=== PATIENT | male | born 1990 | race American Indian/Alaskan Native ===

== ENCOUNTER 2022-04-06 21:40 | Emergency (ER) | payer SELFPAY ==
--- NOTE | 2022-04-07 01:24 | Emergency Department Report ---
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 Patient states he had safety glasses however with chip flipped over glasses and struck him in his right eye. Now with burning itching and redness to same. Patient denies decreased vision. States feels like is a scratch on his side. States clear drainage. Last tetanus shot 4 years ago. Patient denies other complaint. - Related Data Previous Rx's Medication Instructions Recorded Last Taken Type Ibuprofen [Motrin 800 MG tab] 800 mg PO Q8HR PRN #30 tablet 04/07/22 Unknown Rx Ketotifen Fumarate [Zaditor] 2 drops OP BID PRN #5 ml 04/07/22 Unknown Rx Polymyxin B Sulf/Trimethoprim 2 drops OP Q3H 7 Days #10 ml 04/07/22 Unknown Rx [Polytrim Eye Drops] Allergies Allergy/AdvReac Type Severity Reaction Status Date / Time No Known Allergies Allergy Verified 04/06/22 23:58 ED Review of Systems ROS: Stated complaint: EYE IRRITATION Other details as noted in HPI Constitutional: denies: chills, fever Eyes: eye pain, eye discharge (Clear). denies: vision change ENT: denies: ear pain, throat pain Respiratory: denies: cough, shortness of breath, wheezing Cardiovascular: denies: chest pain, palpitations Endocrine: no symptoms reported Gastrointestinal: denies: abdominal pain, nausea, diarrhea Genitourinary: denies: urgency, dysuria Musculoskeletal: denies: back pain, joint swelling, arthralgia Skin: denies: rash, lesions Neurological: denies: headache, weakness, paresthesias, vertigo Psychiatric: denies: anxiety, depression Hematological/Lymphatic: denies: easy bleeding, easy bruising ED Past Medical Hx - Past Medical History Previous Medical History?: No - Surgical History Past Surgical History?: No - Social History Smoking Status: Unknown if ever smoked Substance Use Type: None - Medications Home Medications: Home Medications Medication Instructions Recorded Confirmed Last Taken Type Ibuprofen [Motrin 800 MG tab] 800 mg PO Q8HR PRN #30 tablet 04/07/22 Unknown Rx Ketotifen Fumarate [Zaditor] 2 drops OP BID PRN #5 ml 04/07/22 Unknown Rx Polymyxin B Sulf/Trimethoprim 2 drops OP Q3H 7 Days #10 ml 04/07/22 Unknown Rx [Polytrim Eye Drops] ED Physical Exam - General Limitations: No Limitations General appearance: alert, in no apparent distress - Head Head exam: Present: normocephalic, normal inspection - Eye Eye exam: Present: PERRL, EOMI, conjunctival injection (Right). Absent: nyst agmus, periorbital swelling, periorbital tenderness Pupils: Present: normal accommodation - Expanded Eye Exam Expanded Pupils: Regular, Round: Bilateral, Reactive: Bilateral Sclera/Conjunctival: Injection: Right Anterior chamber: Normal Inspection: Bilateral Posterior chamber: Deferred: Bilateral Visual acuity (R) = 20/: 20 Visual acuity (L) = 20/: 20 With correction: No - ENT ENT exam: Present: normal exam, mucous membranes moist - Neck Neck exam: Present: normal inspection, full ROM. Absent: tenderness, lymphadenopathy - Respiratory Respiratory exam: Present: normal lung sounds bilaterally. Absent: respiratory distress, wheezes - Cardiovascular Cardiovascular Exam: Present: regular rate, normal rhythm, normal heart sounds. Absent: systolic murmur, diastolic murmur, rubs, gallop - GI/Abdominal GI/Abdominal exam: Present: soft, normal bowel sounds. Absent: distended, tenderness - Rectal Rectal exam: Present: deferred - Extremities Exam Extremities exam: Present: normal inspection, full ROM. Absent: tenderness - Back Exam Back exam: Present: normal inspection, full ROM. Absent: CVA tenderness (R), CVA tenderness (L) - Neurological Exam Neurological exam: Present: alert, oriented X3, CN II-XII intact, normal gait - Expanded Neurological Exam Expanded Patient oriented to: Present: person, place, time Speech: Present: fluid speech Cranial nerves: EOM's Intact: Normal Best Eye Response (Fabrizio): (4) open spontaneously Best Motor Response ([place]): (6) obeys commands Best Verbal Response (Fabrizio): (5) oriented [place] Total: 15 - Psychiatric Psychiatric exam: Present: normal affect, normal mood - Skin Skin exam: Present: warm, dry, intact, normal color. Absent: rash ED Course Vital Signs 04/06/22 23:30 Temperature 98.1 F Pulse Rate 61 Respiratory 18 Rate Blood Pressure 123/74 O2 Sat by Pulse 100 Oximetry - Procedure Description Procedures done: Eye exam right eye is PERRLA EOMI conjunctive are injected, anesthesia with tetracaine eyedrops anesthesia is achieved, fluorescein stain, Watkins lamp noted corneal abrasion at 9:00 small no foreign body, eyelids everted and swept no foreign body noted, I irrigated with 10 cc sterile saline, symptoms are resolved per patient. Visual acuity remains 20/20 bilateral, patient given discharge instructions including antibiotic eyedrops, NSAIDs as needed pain, follow-up with ophthalmology tomorrow. Patient tolerated procedure with minimal distress. Patient verbalized agreement and understanding of discharge plan. ED Medical Decision Making - Medical Decision Making Corneal abrasion right thigh, see procedure note, plan DC to home with prescriptions. Follow-up with ophthalmology tomorrow. Return to emergency department should symptoms worsen. Patient verbalized agreement and understanding of discharge plan. Patient DC'd home in stable condition at this time. Critical care attestation.: If time is entered above; I have spent that time in minutes in the direct care of this critically ill patient, excluding procedure time. ED Disposition Clinical Impression: Corneal abrasion, right Qualifiers: Encounter type: initial encounter Qualified Code(s): S05.01XA - Injury of conjunctiva and corneal abrasion without foreign body, right eye, initial encoun ter Disposition: HOME / SELF CARE / HOMELESS Is pt being admited?: No Does the pt Need Aspirin: No Condition: Stable Instructions: Corneal Abrasion, [id number] Additional Instructions: Take medication as prescribed, follow-up with your eye doctor tomorrow. Return to emergency department should symptoms worsen. Prescriptions: Ibuprofen [Motrin 800 MG tab] 800 mg PO Q8HR PRN #30 tablet PRN Reason: pain Polymyxin B Sulf/Trimethoprim [Polytrim Eye Drops] 2 drops OP Q3H 7 Days #10 ml Ketotifen Fumarate [Zaditor] 2 drops OP BID PRN #5 ml PRN Reason: itching eye Referrals: AGUSTÍN SAEZ MD [Staff Physician] - 2-3 Days Forms: Work/School Release Form(ED) Time of Disposition: 01:29
[2022-04-07 01:42] VITALS: BP 121/73
== END 2022-04-07 19:44 | disposition home or self-care (01) ==
LOC: ED 21:40
DX: S05.01XA Injury of conjunctiva and corneal abrasion without foreign body, right eye, initial encounter (principal); X58.XXXA Exposure to other specified factors, initial encounter; Y93.89 Activity, other specified; Y92.89 Other specified places as the place of occurrence of the external cause; Y99.8 Other external cause status
CPT/HCPCS: 99282; 99283